=== PATIENT | female | born 1960 | race Caucasian/White ===

== ENCOUNTER 2017-01-13 21:18 | Emergency (ER) | payer MEDICAID ==
[~2017-01-13] VITALS: Ht 152.4 cm; Wt 72.4 kg
[2017-01-13] MEDS ORDERED: ZIPR80CA2 PO (21:30)
[2017-01-13 22:35] LABS: HEMOGLOBIN 14.8 g/dL (11.7-16.4)
[2017-01-13 22:48] LABS: BLOOD UREA NITROGEN 12 mg/dL (7-18)
[2017-01-13 23:20] VITALS: BP 156/71
== END 2017-01-13 23:51 | disposition home or self-care (01) ==
LOC: ED 23:45
DX: F41.9 Anxiety disorder, unspecified (principal); F31.9 Bipolar disorder, unspecified; Z86.14 Personal history of Methicillin resistant Staphylococcus aureus infection; Z88.6 Allergy status to analgesic agent
CPT/HCPCS: 36415; 80048; 82040; 84443; 85025; 93005

== ENCOUNTER 2017-02-14 09:03 | Emergency (ER) | payer MEDICAID ==
[~2017-02-14] VITALS: Ht 152.4 cm; Wt 77.0 kg
[~2017-02-14 09:03] MED LIST: ZIPR80CA2 PO
[2017-02-14 09:19] VITALS: BP 116/88
== END 2017-02-14 10:11 | disposition left against medical advice (07) ==
LOC: ED 10:05
DX: H92.02 Otalgia, left ear (principal); Z53.21 Procedure and treatment not carried out due to patient leaving prior to being seen by health care provider

== ENCOUNTER 2017-11-06 17:55 | Emergency (ER) | payer MEDICAID ==
[~2017-11-06] VITALS: Ht 152.4 cm; Wt 72.9 kg
[2017-11-06 17:58] VITALS: BP 105/82
[2017-11-06] MEDS ORDERED: CYCLOBENZAPRINE 10 MG TABLET PO STA (19:09)
[2017-11-06] MEDS ORDERED: HYDROcodone/APAP 5/325 TABLET PO STA (19:09)
[2017-11-06] MEDS ORDERED: HYDROcodone/APAP 5/325 TABLET ONE (19:14)
[2017-11-06] MEDS ORDERED: METHOCARBAMOL 750 MG TABLET ONE (19:15)
[2017-11-06] MEDS ORDERED: KETOROLAC 60 MG/2 ML IM ONE (19:30)
[2017-11-06] MEDS ORDERED: METHOCARBAMOL 750 MG TABLET PO ONE (19:30)
== END 2017-11-06 19:20 | disposition home or self-care (01) ==
LOC: ED 19:14
DX: S39.012A Strain of muscle, fascia and tendon of lower back, initial encounter (principal); M51.36 Other intervertebral disc degeneration, lumbar region; Z86.14 Personal history of Methicillin resistant Staphylococcus aureus infection; X58.XXXA Exposure to other specified factors, initial encounter; Y93.89 Activity, other specified; Y99.8 Other external cause status; Y92.89 Other specified places as the place of occurrence of the external cause
CPT/HCPCS: 72110; 99284

== ENCOUNTER 2019-03-01 11:25 | Emergency (ER) | payer MEDICAID ==
[~2019-03-01] VITALS: Ht 152.4 cm; Wt 79.5 kg
[2019-03-01 11:41] VITALS: BP 113/65
[2019-03-01] MEDS ORDERED: PRESTIQUE PO (12:02)
[2019-03-01] MEDS ORDERED: TOPAMATE PO (12:02)
[2019-03-01] MEDS ORDERED: QUET50TA5 PO (12:02)
[2019-03-01] MEDS ORDERED: PROP40TA PO (12:02)
[2019-03-01] MEDS ORDERED: KETOROLAC 30 MG/1 ML ONE (12:04)
[2019-03-01] MEDS ORDERED: KETOROLAC 30 MG/1 ML IM ONE (12:30)
--- NOTE | 2019-03-01 13:44 | NUR ---
after being denied a home prescription for narcotics, pt became verbally agressive and angry with staff. pt refused to sign dc paperwork and refused education regarding crutch use. pt requested to be wheeled to dc desk instead of using crutches. pt was wheeled to dc desk with crutches and all belongings.
== END 2019-03-01 13:49 | disposition home or self-care (01) ==
LOC: ED 13:43
DX: S80.01XA Contusion of right knee, initial encounter (principal); S09.8XXA Other specified injuries of head, initial encounter; I10 Essential (primary) hypertension; W11.XXXA Fall on and from ladder, initial encounter; Y93.89 Activity, other specified; Y92.009 Unspecified place in unspecified non-institutional (private) residence as the place of occurrence of the external cause; Y99.8 Other external cause status
CPT/HCPCS: 29505; 70450; 73564; 96372; 99284; J1885

== ENCOUNTER 2020-08-11 08:13 | Emergency (ER) | payer MEDICAID ==
[~2020-08-11] VITALS: Ht 152.4 cm; Wt 82.6 kg
[~2020-08-11 08:13] MED LIST changes: +PRESTIQUE PO; +PROP40TA PO; +QUET50TA5 PO; +TOPAMATE PO
[2020-08-11 08:30] VITALS: BP 121/70
--- NOTE | 2020-08-11 10:02 | NUR ---
DENTAL PATIENT COORDINATOR: CALLED FOR ROOM, NO ANSWER
--- NOTE | 2020-08-11 10:11 | NUR ---
CHILD THERAPIST: CALLED FOR ROOM, NO ANSWER
--- NOTE | 2020-08-11 10:38 | NUR ---
CALLED FOR ROOM, NO ANSWER
== END 2020-08-11 10:44 | disposition left against medical advice (07) ==
LOC: ED 10:38
DX: U07.1 COVID-19 (principal)
CPT/HCPCS: 36415; 87635; 99283

== ENCOUNTER 2021-02-01 16:10 | Emergency (ER) | payer MEDICAID ==
[~2021-02-01] VITALS: Ht 152.4 cm; Wt 79.5 kg
[~2021-02-01 16:10] MED LIST changes: +ASCO500T9 PO; +CHOL500045 PO; +PRED20TA PO; +PROP80TA PO; +VENL37.52 PO; +ZINC220C7 PO
--- NOTE | 2021-02-01 16:42 | NUR ---
Boiling ribs and splashed water on chest neck, ABD, right arm, left finger. blisteres noted to chest. pt pain 10/10. 20 g iv started in left AC.
[2021-02-01] MEDS ORDERED: HYDROmorphone 1 MG/ML, 1ML INJ ONE (16:47)
--- NOTE | 2021-02-01 16:51 | NUR ---
Gave 1mg hydromorphone per MD Gold IV. Cold compress put on chest
--- NOTE | 2021-02-01 17:24 | NUR ---
PHARM REQUEST SENT FOR ALO
[2021-02-01] MEDS ORDERED: SILVER SULF. CRM 1% , 25GM TP ONE (17:30)
[2021-02-01] MEDS ORDERED: HYDROmorphone 1 MG/ML, 1ML INJ IV ONE (17:30)
[2021-02-01] MEDS ORDERED: SILVER SULF. CRM 1% , 25GM ONE (17:42)
[2021-02-01 18:50] VITALS: BP 115/74
== END 2021-02-01 18:52 | disposition home or self-care (01) ==
LOC: MERGE 16:10 → ED 18:24
DX: T21.21XA Burn of second degree of chest wall, initial encounter (principal); T22.10XA Burn of first degree of shoulder and upper limb, except wrist and hand, unspecified site, initial encounter; T25.132A Burn of first degree of left toe(s) (nail), initial encounter; T31.0 Burns involving less than 10% of body surface; F17.200 Nicotine dependence, unspecified, uncomplicated; Z88.8 Allergy status to other drugs, medicaments and biological substances; X58.XXXA Exposure to other specified factors, initial encounter; Y93.89 Activity, other specified; Y92.89 Other specified places as the place of occurrence of the external cause; Y99.8 Other external cause status
CPT/HCPCS: 16020; 96374; 99283; J1170